=== PATIENT | female | born 1930 | race Caucasian/White ===

== ENCOUNTER 2018-06-25 06:15 | Day surgery (SDC) ==
--- NOTE | 2018-06-23 13:12 | EKG Report ---
Test Performed on : 06/23/2018 12:56:24 PM Test Reason : PAT Blood Pressure : / mmHG Vent. Rate : 102 BPM Atrial Rate : 102 BPM P-R Int : 134 ms QRS Dur : 082 ms QT Int : 350 ms P-R-T Axes : 036 -09 055 degrees QTc Int : 456 ms Sinus tachycardia. Nonspecific T wave abnormality Abnormal ECG When compared with ECG of 21-MAY-2018 13:57, (Unconfirmed) premature ventricular complexes. are no longer present Confirmed by Cam ASTORGA, Alban Ruiz ([id number]) on 06/25/2018 8:45:09 AM
[2018-06-23 13:26] LABS: HEMATOCRIT 31.6 % (37.0-47.0); HEMOGLOBIN 9.6 g/dL (12.0-16.0); MCH 29.3 PG (27-31); MCHC 30.4 g/dL (33-37); MCV 96.3 FL (81-99); MPV 11.9 FL (7.4-10.4); RBC 3.28 XMIL (4.2-5.4); RDW 27.6 % (11.5-14.5); WBC 3.74 X1000 (4.8-10.8)
[2018-06-23 14:30] LABS: AGAP 14; ALB/GLOB RATIO 0.4; ALBUMIN 2.1 g/dL (3.5-5.0); ALKALINE PHOSPHATASE 259 U/L (32-104); BUN 19 mg/dL (8-22); CALCIUM 8.2 mg/dL (8.8-10.2); CHLORIDE 96 mmol/L (98-107); COSMO 264; CREATININE 0.5 mg/dL (0.5-0.9); ESTIMATED GFR > 60; GLUCOSE 176 mg/dL (70-104); GOT 51 U/L (10-30); GPT 22 U/L (10-36); POTASSIUM 4.2 mmol/L (3.5-5.1); SODIUM 128 mmol/L (136-145); TCO2 18 mmol/L (25-35); TOTAL BILIRUBIN 2.65 mg/dL (0.20-1.00); TOTAL PROTEIN 7.7 g/dL (6.3-8.3)
[2018-06-25] MEDS ORDERED: PEPCID ONE (06:39)
[2018-06-25] MEDS ORDERED: LR 1,000 ML ONE ×2 (06:39→07:48)
[2018-06-25] MEDS ORDERED: SODIUM CHLORIDE 0.9% ONE (07:48)
[2018-06-25] MEDS ORDERED: SENSORCAINE-MPF 0.5%/EPI 1:200,000 ONE (07:48)
[2018-06-25] MEDS ORDERED: QUELICIN (DOSE) ONE (07:57)
[2018-06-25] MEDS ORDERED: XYLOCAINE-MPF 2% ONE (07:57)
[2018-06-25] MEDS ORDERED: FENTANYL ONE (08:19)
[2018-06-25] MEDS ORDERED: NEO-SYNEPHRINE ONE (08:23)
[2018-06-25] MEDS ORDERED: GLUCAGON ONE ×2 (08:49→08:56)
[2018-06-25] MEDS ORDERED: ZOFRAN ONE (08:55)
[2018-06-25] MEDS ORDERED: DECADRON ONE (08:55)
[2018-06-25] MEDS ORDERED: EPHEDRINE ONE (08:56)
--- NOTE | 2018-06-25 09:18 | Diag Imaging Result Doc PS360 ---
EXAM: OPERATIVE CHOLANGIOGRAM 06/25/2018 HISTORY: GALLBLADDER DX TECHNIQUE: Intraoperative cholangiogram three views, fluoroscopy time one minute 36 seconds, dose 47560 mGy. COMMENT: The intrahepatic ducts are not well demonstrated. The common bile duct appears to be somewhat compressed and its midportion. There is some contrast in what appears to be the gallbladder. There is no evidence of contrast reaching the duodenum. There may be a filling defect in the distal duct. IMPRESSION: The possibility of retained stones or other obstructing lesion in the distal common bile duct cannot be excluded. Electronically signed by Jose Beverly 06/25/2018 9:16 AM
--- NOTE | 2018-06-25 10:02 | Diag Imaging Result Doc PS360 ---
EXAM: CHEST-1 VIEW 06/25/2018 HISTORY: ro pulmonary edema TECHNIQUE: AP portable upright at 0952 COMMENT: There is some retrocardiac opacity in the left lower lobe. This was also presumably present on 05/21/2018. IMPRESSION: Atelectasis versus pneumonia left lower lobe. Electronically signed by Jose Beverly 06/25/2018 10:00 AM
[2018-06-25] MEDS: MORPHINE ONE ×2 (10:03→10:10)
[2018-06-25] MEDS ORDERED: LR 1,000 ML IV SCH (10:30)
[2018-06-25] MEDS ORDERED: TYLENOL ARTHRITIS PO PRN (10:49)
[2018-06-25] MEDS ORDERED: BISMATROL PO PRN (10:49)
[2018-06-25] MEDS ORDERED: MIRALAX PO PRN (10:49)
[2018-06-25] MEDS ORDERED: MILK OF MAGNESIA PO PRN (10:49)
[2018-06-25] MEDS ORDERED: ZOFRAN IV PRN (10:49)
--- NOTE | 2018-06-25 12:27 | OPERATIVE NOTE ---
PROCEDURE DATE: 06/25/2018 PROCEDURE PERFORMED: Laparoscopic cholecystectomy with operative cholangiogram. SURGEON: Andreas Thao MD. CHIEF OF INTERNAL MEDICINE: JOSÉ MIGUEL Childers. PREOPERATIVE DIAGNOSIS: Chronic calculous cholecystitis. POSTOPERATIVE DIAGNOSES: 1. Chronic calculous cholecystitis. 2. Choledocholithiasis. . FINDINGS: The cholangiogram revealed a normal size common duct. There was no free flow in the duodenum. There appeared to be a filling defect in the distal common bile duct. DESCRIPTION OF PROCEDURE: Satisfactory general endotracheal anesthesia was achieved, the abdomen is prepped and draped in a sterile fashion. We anesthetized the skin at the base of the umbilicus. We incised the skin, and carried our incision into the abdominal cavity. We placed our 11 trocar there with Optiview technique. We insufflated through this trocar. Under direct visualization, we were able to gain access in the left upper quadrant. We visualized the epigastrium, and introduced 11 trocar in the epigastrium. We then introduced a 5 trocar in the midclavicular line, and a 5 trocar near the anterior axillary line. The adhesions were taken down from the back of the abdominal wall to allow free access to the umbilical trocar into the abdominal cavity. We then placed the camera into the umbilical trocar. We then placed the patient in reverse Trendelenburg and turned her to the left. We grasped the fundus of the gallbladder. It was full of stones. We reflected it cephalad, began dissection of the triangle of Calot. We identified the cystic artery, clipped it proximally x2, distally x1, and divided it. We then identified the cystic duct, clipped it near the junction of the gallbladder. We incised the cystic duct, introduced a Irene catheter, and clipped. We shot the cholangiogram, and the findings above were noted. There was no free flow in the duodenum, and appeared to be a stone in the distal duct. We removed the Irene catheter and clipped the cystic duct on the opposite side of the cystic ductotomy x2, and then transected the cystic duct. Another branch of the cystic artery was clipped and divided. We then used the cautery spatula to dissect the gallbladder away from the liver. After complete separation of gallbladder from liver, we changed videolaparoscope to the mid epigastric trocar. We introduced a claw forceps. We grasped the infundibulum. We delivered the gallbladder to the umbilical trocar site. We enlarged the fascial incision enough to deliver the gallbladder out of the abdominal cavity. We replaced the trocar at the umbilicus, looked back, and irrigated and aspirated. Achieved satisfactory hemostasis in the bed of the gallbladder. We then used a Reji-Helen wound closure for the epigastric trocar site. We desufflated and removed our other trocars. We closed the fascia at the umbilicus under direct visualization with 2-0 Polysorb fascial stitches. We then closed the skin at each incision with 4- 0 Polysorb subcuticular stitches. Sterile OpSite's were applied. She tolerated it well, and was sent to the recovery room in satisfactory condition. cc: Andreas Thao MD MTDD
--- NOTE | 2018-06-25 14:47 | GASTROENTEROLOGY CONSULTATION ---
DATE: 06/25/2018 ATTENDING PHYSICIAN: Dr. Thao. PRIMARY CARE PHYSICIAN: Dr. Michael Simental. REASON FOR CONSULTATION: Common bile duct stone on intraoperative cholangiogram. HISTORY OF PRESENT ILLNESS: Ms. Martin is an 87-year-old female who was admitted electively for a laparoscopic cholecystectomy by Dr. Andreas Thao. She was having abdominal discomfort for a few months. She had abdominopelvic CT scan done on 06/02/2018 which showed evidence of mild splenomegaly, enlarged cardiophrenic lymph nodes and shoddy borderline, and mildly prominent periaortic lymph nodes, nonspecific, small enhancing nodule at the upper pole of the left kidney, large hiatal hernia, and trace nonspecific fluid layering in the pelvis. The gallbladder and liver were unremarkable on that study. Following that, she had a HIDA scan which showed nonvisualization of the gallbladder. The possibility acute cholecystitis cannot be excluded. This was on 06/11/2018. She was brought in now for elective cholecystectomy by Dr. Thao. Intraoperative cholangiogram showed a possibility of retained stones in the distal common bile duct. Gastroenterology was consulted for further management of possible ERCP. PAST MEDICAL HISTORY: B12 deficiency, hypertension, hyperlipidemia, chronic blood-loss anemia, breast mass, hiatal hernia, reflux disease. PAST SURGICAL HISTORY: Recent cholecystectomy per Dr. Thao during this admission. FAMILY HISTORY: Noncontributory. SOCIAL HISTORY: No history of tobacco or illicit drugs. She was a former smoker. ALLERGIES: Penicillin and adhesive tape. MEDICATIONS IN THE HOSPITAL: Include Pravachol, Celebrex, Estrace, hydrocodone/acetaminophen, Cozaar, lactated Ringer's, magnesium hydroxide, metoprolol, Prilosec 40 mg every day, Zofran twice daily, MiraLAX 17 g p.o. daily as needed, Tylenol 650 mg every 6 as needed, bismuth subsalicylate 15 mL p.o. as needed. DIET: She is on clear liquid diet. REVIEW OF SYSTEMS: Denies any fevers, rigors, chills, chest pain, or shortness of breath. Denies any nausea, vomiting, or vomiting blood. Does complain of soreness in the abdomen from recent surgery. She has not had a bowel movement today. She does have a history of arthritis. PHYSICAL EXAMINATION: Vital Signs: Temperature 98 degrees, pulse rate of 86, respiratory rate of 15, blood pressure 115/62, saturating 99% on nasal cannula. Body weight of 142 pounds, BMI of 29.7 kg/m2. General Appearance: Moderately built, moderately nourished, lying in bed, in no acute distress. HEENT: Pale conjunctiva. Icteric sclerae. Pupils equal, reactive to light. Neck: Supple. Abdomen: Discomfort in the pelvic region and right upper quadrant region. There was no rebound or guarding. Extremities: No cyanosis, clubbing. Neurologic: Alert awake, and answers simple questions. LABS: Hemoglobin and hematocrit are 9.6 and 31.6, white count of 3.74, platelet count of 103,000. Sodium of 128, potassium 4.2, chloride of 96, bicarb 20, anion gap of 14, BUN of 19, creatinine 0.5, glucose 136, calcium is 8.2. Total bilirubin is 2.65, AST 51, ALT 22, alkaline phosphatase was 259, total protein 7.2, albumin of 2.1. Intraoperative cholangiogram showed evidence of possibility of a filling defect in the distal duct with no evidence of contrast reaching the duodenum. Chest x-ray done which showed atelectasis versus pneumonia in the left lower lobe. IMPRESSION AND PLAN: 1. Status post cholecystectomy today. 2. Choledocholithiasis. 3. Anemia. 4. Hiatal hernia. RECOMMENDATIONS: 1. We will make her NPO past midnight. We will schedule with ERCP tomorrow with Dr. Brand. The risks, benefits, indications, and alternatives were discussed with the patient. All questions were answered. I also spoke to the patient's nurse. The patient will continue PPIs once daily for reflux disease. 2. The patient has chronic anemia. She will continue to be monitored closely and transfused as needed. She will continue on MiraLAX as needed, bowel regimen. 3. Further recommendations follow pending the hospital course. The above plans were discussed with the patient. All questions were answered. Please call us with any further questions. Thank you for allowing us to participate in the care of the patient. Please call us with any further questions. cc: MD Andreas Garg MD Timothy P. Weirich, MD MTDD
[2018-06-25] MEDS: NORCO-7.5 PO PRN ×2 (19:35→22:46)
[2018-06-25] MEDS: PRAVACHOL PO SCH (22:45)
[2018-06-25] MEDS: PERIDEX MT SCH (22:47)
[2018-06-25] MEDS: PATIENT'S OWN MED PO SCH (22:47)
[2018-06-26] MEDS: PRILOSEC PO SCH (06:50)
[2018-06-26] MEDS ORDERED: DIPRIVAN 1% ONE ×2 (09:32)
[2018-06-26] MEDS ORDERED: XYLOCAINE-MPF 1% 5 ML ONE (10:35)
[2018-06-26] MEDS ORDERED: XYLOCAINE-MPF 2% ONE (11:16)
--- NOTE | 2018-06-26 11:42 | Diag Imaging Result Doc PS360 ---
EXAM: ERCP-BILIARY AND PANCREATIC 06/26/2018 HISTORY: CBD stones TECHNIQUE: Three images, 46.8 mGy, two minutes 50 seconds fluoroscopy time. COMMENT: Contrast was injected into the common bile duct which is without evidence of filling defects or obstruction. Contrast is seen in the duodenum. A stent was placed. IMPRESSION: Biliary stent placement. No evidence retained stones or obstruction. Electronically signed by Jose Beverly 06/26/2018 11:40 AM
[2018-06-26] MEDS: ESTRACE PO SCH (12:48)
[2018-06-26] MEDS: PERIDEX MT SCH ×2 (12:48→23:36)
[2018-06-26] MEDS: LOPRESSOR PO SCH (12:48)
[2018-06-26] MEDS: CELEBREX PO SCH (12:48)
[2018-06-26] MEDS: PATIENT'S OWN MED PO SCH (12:49)
[2018-06-26] MEDS: COZAAR PO SCH (12:49)
--- NOTE | 2018-06-26 13:58 | Diag Imaging Result Doc PS360 ---
CHEST-1 VIEW - 06/26/2018 INDICATION: possible sepsis COMPARISON: 06/25/2018 FINDINGS: Lung volumes are lower. There is linear atelectasis in the lung bases. There is probably also some indeterminate infiltrate in the lung bases. Heart size appears top normal. IMPRESSION: Lower lung volumes. Worsening atelectasis and possible pneumonia in the lung bases. Electronically signed by Jean Marie Bentley 06/26/2018 1:55 PM
[2018-06-26 15:44] LABS: BASO# 0.01 X1000 (0.0-0.2); BASO% 0.2 % (0.0-0.8); HEMATOCRIT 26.8 % (37.0-47.0); HEMOGLOBIN 8.4 g/dL (12.0-16.0); IMM GRAN# 0.09 X1000 (0.0-0.04); LYMPH# 0.23 X1000 (1.2-3.4); MCH 29.8 PG (27-31); MCHC 31.3 g/dL (33-37); MONO# 0.46 X1000 (0.11-0.59); MPV 11.8 FL (7.4-10.4); NEUT# 3.81 X1000 (1.4-6.5); NEUT% 82.8 % (42.2-75.2); PLT 108 X1000 (130-400); RBC 2.82 XMIL (4.2-5.4); RDW 25.9 % (11.5-14.5)
[2018-06-26 15:46] LABS: INR 1.33; PROTIME 17.5 Seconds (11.0-16.0)
[2018-06-26 15:47] LABS: PTT 33.2 Seconds (22.3-41.8)
[2018-06-26 16:03] LABS: AGAP 11; ALB/GLOB RATIO 0.4; ALKALINE PHOSPHATASE 183 U/L (32-104); BUN 22 mg/dL (8-22); CALCIUM 8.1 mg/dL (8.8-10.2); CHLORIDE 101 mmol/L (98-107); CK PROFILE 10 U/L (24-173); COSMO 278; CREATININE 0.6 mg/dL (0.5-0.9); ESTIMATED GFR > 60; GLUCOSE 173 mg/dL (70-104); GOT 38 U/L (10-30); GPT 27 U/L (10-36); SODIUM 135 mmol/L (136-145); TCO2 23 mmol/L (25-35); TOTAL BILIRUBIN 2.24 mg/dL (0.20-1.00); TOTAL PROTEIN 6.8 g/dL (6.3-8.3)
[2018-06-26 16:24] LABS: URINE SOURCE CATH
[2018-06-26 16:25] LABS: ANISOCYTOSIS 2+; BANDS 2 % (0-1); EOS 1 % (1-10); HYPOCHROM 2+; LYMPHS 6 % (21-51); MONO 7 % (1-9); SEGS 84 % (42-75)
[2018-06-26 16:30] LABS: BILIRUBIN URINE SMALL (NEGATIVE); BLOOD URINE NEGATIVE (NEGATIVE); COLOR YELLOW; GLUCOSE URINE 70 mg/dL (NEGATIVE); KETONE URINE NEGATIVE (NEGATIVE); LEUKOCYTES URINE NEGATIVE (NEGATIVE); NITRITE URINE NEGATIVE (NEGATIVE); PROTEIN URINE 100 mg/dL (NEGATIVE); SP GRAVITY URINE 1.025; TURBIDITY URINE HAZY (CLEAR); UROBILINOGEN URINE 12 mg/dL (NORMAL)
[2018-06-26 16:32] LABS: UR EPITHELIAL CELLS <10 /HPF (<10); URINE BACTERIA NEGATIVE /HPF; URINE WBC <10 /HPF (<10)
--- NOTE | 2018-06-26 17:44 | DISCHARGE SUMMARY ---
ADMISSION DATE: 06/25/2018 DISCHARGE DATE: 06/26/2018 TIME: 5:30 in afternoon. PRIMARY DISCHARGE DIAGNOSIS: Chronic calculous cholecystitis with choledocholithiasis. OTHER DIAGNOSES: Include 1. Hypertension. 2. Hyperlipidemia. 3. Gastroesophageal reflux disease. PRIMARY PROCEDURES: 1. Laparoscopic cholecystectomy with operative cholangiogram. 2. An ERCP with stent placement Dr. Brand. HOSPITAL COURSE: This 87-year-old who had previous infection sepsis from cholecystitis. She has numerous stones in her gallbladder so she was admitted for a cholecystectomy. She underwent the procedure on 06/25/2018 uneventfully. She did have a stone in common duct stone so Dr. Brand was consulted and then performed an ERCP on 06/26/2018. A stent was placed. No filling defects were seen after the stent was placed. She tolerated it well. Postoperatively this afternoon she is afebrile, heart rate 79, blood pressure 122/58. We will plan to return her back to the [facility] in [place] on the morning of 06/27. Dr. De La Cruz will be covering in my absence. She will resume her usual medications. A prescription for some pain medicine will be written. She will follow up with me in 2 weeks, Dr. Brand in 3 weeks. cc: Andreas Thao MD
--- NOTE | 2018-06-26 17:52 | OPERATIVE NOTE ---
PROCEDURE DATE: PROCEDURES: 1. Endoscopic retrograde cholangiopancreatography. 2. Endoscopic sphincterotomy. 3. Basket sweep. 4. Endoscopic biliary stent placement. PREOPERATIVE DIAGNOSIS: Common bile duct stone. POSTOPERATIVE DIAGNOSIS: Debris in bile duct. No stone, per se. Status post sphincterotomy and stent placement. DESCRIPTION OF PROCEDURE: After informed consent and adequate intravenous sedation, the scope was introduced in the stomach and duodenum. The patient's ampulla shows 2 separate entries for pancreatic and bile duct. The bile duct was selectively cannulated. There was a hang-up of contrast within the intraduodenal portion. I did not see a specific stone. At this point wide sphincterotomy was done and basket was used with sweep and flush. All I saw was some minor sludge but no stones. At this point, after thorough lavage, cholangiogram did not reveal anything. A 10- Eritrean, 5 cm stent was deployed. We will keep it for a few weeks. I will see her in the office in 3 weeks, and remove this selectively. I talked to the family about it. cc: MD Andreas Buenrostro MD
[2018-06-26] MEDS: NORCO-7.5 PO PRN ×2 (19:38→23:35)
[2018-06-26] MEDS: PRAVACHOL PO SCH (23:35)
[2018-06-27] MEDS: PATIENT'S OWN MED PO SCH ×2 (03:00→08:44)
[2018-06-27] MEDS: PRILOSEC PO SCH (08:40)
[2018-06-27] MEDS: ESTRACE PO SCH (08:40)
[2018-06-27] MEDS: CELEBREX PO SCH (08:40)
[2018-06-27] MEDS: LOPRESSOR PO SCH (08:40)
[2018-06-27] MEDS: PERIDEX MT SCH (08:40)
[2018-06-27] MEDS: COZAAR PO SCH (08:40)
[2018-06-27 11:48] VITALS: BP 136/59
== END 2018-06-27 12:26 | disposition home or self-care (01) ==
LOC: PAT 06:15 → 4N 06:15 → OPS 06:15
PROVIDERS: ATTEND Surgery
PROC: EN.ERCP (2018-06-26 10:50)
CPT/HCPCS: 71010; 71045; 74300; 74330; 80053; 81001; 82550; 83605; 84484; 85025; 85027; 85610; 85730; 87040; 88304; 88313; 93005; 93010; 94761; 94799; A9270; J0330; J1100; J1610; J2270; J2370; J2405; J3010; J7120; Q9966; Q9967

== ENCOUNTER 2018-07-15 17:16 | Inpatient (IN) ==
--- NOTE | 2018-07-15 20:52 | PROVIDER DOCUMENTATION ---
HPI-General Adult - General Chief Complaint: Altered Mental Status Stated Complaint: AMS Time Seen by Provider: 07/15/18 20:40 Source: patient Allergies/Adverse Reactions: Patient Allergies Allergy/AdvReac Type Severity Reaction Status Date / Time Penicillins Allergy Unknown Verified 06/25/18 06:44 adhesive tape AdvReac REDNESS Verified 06/25/18 06:44 Home Medications: Home Medication List Medication Instructions Recorded Confirmed Last Taken Type Estradiol 0.5 mg PO DAILY 03/25/14 07/07/18 06/24/18 History Pravastatin Sodium [Pravachol] 20 mg PO QHS 03/25/14 07/07/18 06/24/18 21:00 History Omeprazole [Prilosec] 40 mg PO DAILY #30 capsule 03/26/14 07/07/18 06/24/18 Rx Acetaminophen E.r. [Tylenol 650 mg PO PRN PRN 09/17/17 07/07/18 05/21/18 History Arthritis] Polyethylene Glycol 3350 [Miralax] 17 gm PO PRN PRN 09/17/17 07/07/18 3 Days Ago History ~05/18/18 Losartan [Cozaar] 50 mg PO DAILY 05/05/18 07/07/18 06/24/18 History Celecoxib [Celebrex] 200 mg PO DAILY cap 05/27/18 07/07/18 06/24/18 Rx B12/Levomefolate Calcium/B-6 1 ea PO DAILY 06/23/18 07/07/18 06/24/18 History [Folbic Rf Tablet] Bismuth Subsalicylate [Bismatrol] 15 ml PO PRN PRN 06/23/18 07/07/18 Unknown History Iron Carbonyl/Vit C/Vit B12/FA 1 ea PO DAILY 06/23/18 07/07/18 06/24/18 History [Icar-C Plus] Lactobac No.30/Bifidobact No.4 1 ea PO DAILY 06/23/18 07/07/18 06/24/18 History [Ultimate Aggie Probiotic Dr Cp] Magnesium Hydroxide [Milk of 30 ml PO PRN PRN 06/23/18 07/07/18 Unknown History Magnesia] Metoprolol [Lopressor] 25 mg PO DAILY 06/23/18 07/07/18 06/25/18 05:00 History Protein Supplement [Promod] 30 ml PO BID 06/23/18 07/07/18 06/24/18 History Tramadol [Ultram] 50 mg PO Q6H PRN PRN #14 tab 06/26/18 07/07/18 Unknown Rx Alprazolam [Xanax] 0.25 mg PO BID PRN 07/07/18 07/07/18 Unknown History Azithromycin 250 mg PO DAILY 07/07/18 07/07/18 Unknown History Furosemide [Lasix] 40 mg PO DAILY 07/07/18 07/07/18 Unknown History Levofloxacin [Levaquin] 500 mg PO DAILY 07/07/18 07/07/18 Unknown History Potassium Chloride 20 meq PO DAILY 07/07/18 07/07/18 Unknown History - History of Present Illness -Gen Adult Nature of Presenting Problems: 87 YOF PRESENTS WITH C/O JAUNDICE AND GENERAL DECLINE. SHE WAS SEEN LAST NIGHT FOR ANKLE FRACTURE AND FAMILY HAS BROUGHT HER BACK DUE TO THE ABOVE. DISCUSSION WITH DAUGHTER AND REVIEW OF ADVANCED DIRECTIVE SHOW PATIENT IS DNR Onset/Duration: reports: unsure (FMAILY LIVES OUT OF TOWN, PATIENT IS IN REHAB FACILITY AFTER CHOLECYSTECTOMY AND BILIARY STENTING) Timing: reports: still present Context/Activities at Onset: reports: none Modifying Factors: improves with: nothing Associated Symptoms: reports: denies symptoms Similar Symptoms Previously?: No Recently seen or treated by another doctor?: No Review of Systems - Adult - REVIEW OF SYSTEMS - ADULT ROS:: unobtainable per condition ([facility] IS UNABLE TO ANSWER QUESTIONS, DAUGHTER AT BEDSIDE ABLE TO PROVIDE LIMITED INFO.) Constitutional: reports: other (JAUNDICE, GENERAL DECLINE) Past History - Adult - PAST MEDICAL HISTORY-ADULT Review of Records: reports: Nursing Assessment Review, Social history reviewed & non-contributory. Major Childhood Illnesses: reports: denies history Cardiovascular: reports: HTN Respiratory: reports: asthma Gastrointestinal: reports: GERD Obstetrical/Gynecological: reports: denies history Genitourinary: reports: denies history Musculoskeletal: reports: denies history Neurological: reports: denies history Psychiatric: reports: anxiety Endocrine/Immune: reports: denies history Other Conditions: reports: denies history - PRIOR SURGERIES/PROCEDURES Surgical/Procedure History: reports: appendectomy, hysterectomy - IMMUNIZATION STATUS Childhood Immunizations: See Nurse Assessment Flu Vaccine: See Nurse Assessment - FAMILY HISTORY Family History: reviewed, not pertinent Physical Exam-General - PHYSICAL EXAM-ADULT Initial Vital Signs Reviewed: Yes - CONSTITUTIONAL General Appearance: appears well, no apparent distress, lethargic - EYES Eyes: PERRL/EOMI, pink conjunctivae - HEAD, EARS, NOSE, MOUTH & THROAT HENMT: normocephalic/atraumatic - NECK Neck: non-tender, full range of motion - RESPIRATORY Respiratory: chest non-tender, lungs clear, normal breath sounds, no pleuratic chest pain, no respiratory distress, no accessory muscle use - CARDIOVASCULAR Cardiovascular: normal peripheral pulses, regular rate, rhythm. negative: no edema - GASTROINTESTINAL (ABDOMEN) Abdominal Exam: normal bowel sounds, non tender, soft - LYMPHATIC Lymphatic: no adenopathy - MUSCULOSKELETAL Back Exam: normal inspection Extremity: non-tender - SKIN Integumentary: jaundice - NEUROLOGIC Neurologic: grossly normal - PSYCHIATRIC Psych/Mental Status: normal mood/affect, oriented x 3 Progress - PLAN OF CARE/RESULTS Progress/Plan/Lab Results: Vital Signs - 8 hr 07/15/18 17:35 07/15/18 20:25 Temperature 98.1 F 98.0 F Pulse Rate 80 99 H Respiratory Rate 20 24 Blood Pressure 120/62 90/36 O2 Sat by Pulse Oximetry 95 99 Orders Category Date Time Status Finger Stick Blood Sugar (ED) DIRECTED Care 07/15/18 20:43 Active Saline Loc NOW Care 07/15/18 20:[address] HEAD W/O CONTRAST [CT] Stat Exams 07/15/18 20:42 Ordered AMMONIA [CHEM] Stat Lab 07/15/18 20:43 Uncollected CBC WITH ELECTRONIC DIFF [HEME] Stat Lab 07/15/18 20:43 Uncollected COMPREHENSIVE METABOLIC PANEL [CHEM] Stat Lab 07/15/18 20:43 Uncollected HEPATIC FUNCTION [CHEM] Stat Lab 07/15/18 20:43 Uncollected PROTIME WITH INR [COAG] Stat Lab 07/15/18 20:43 Uncollected PTT [COAG] Stat Lab 07/15/18 20:43 Uncollected Result Diagrams: 07/15/18 23:10 07/15/18 23:10 - CT/MRI 1 CT Study: Abdomen, Pelvis Impression: Abnormal (1. APPROPRIATE BILE DUCT STENT POSITION WITH NO BILE DUCT DILATION 2.PROBABLE METASTATIC ADENOPATHY IN THE RETROPERITONEUM, UPPER ABDOMEN, BILATERAL MAMMARY CHAINS. 3. INCREASED SMALL BILATERAL PLEURAL EFFUSIONS.) - CONSULTS/PCP/HOSPITALIST Notification #1 *Consult/PCP/Hospitalist*: DR BHATT. TO ER FOR ADMIT Time Discussed: Departure - Departure Date of Disposition Decision: 07/16/18 Time of Disposition Decision: DIAGNOSIS: Jaundice, Altered mental state Disposition: ADMITTED INPATIENT 09 Certified Medical Emergency: Emergent Condition: Good Referrals and Follow-Ups: Alex Rizzo [Primary Care Provider] - - Critical Care Note This patient required my direct & personal management of CC.: No Attestation - Physician/ RODOLFO Attestation Patient care was provided by Advanced Practice Provider:: Yes Advanced Practice Provider:: Deborah Thao Advanced Practice Provider documentation review:: The Mid-level provider documentation, treatment plan and medical decision making was reviewed by the physician who agrees with all treatment and medical decision making by the MLP. The physician spent face to face time with patient:: No Advanced Practice Provider documentation review:: Supervising physician onsite and consulted in the evaluation and care of this patient. The physician did not have a face to face encounter with the patient.
[2018-07-15 23:23] LABS: BASO# 0.03 X1000 (0.0-0.2); BASO% 0.4 % (0.0-0.8); HEMATOCRIT 28.4 % (37.0-47.0); HEMOGLOBIN 9.1 g/dL (12.0-16.0); IMM GRAN# 0.42 X1000 (0.0-0.04); IMM GRAN% 5.4 % (0.0-0.5); LYMPH# 0.45 X1000 (1.2-3.4); LYMPH% 5.8 % (20.5-51.1); MCH 29.4 PG (27-31); MCV 91.9 FL (81-99); MONO# 0.71 X1000 (0.11-0.59); MONO% 9.1 % (1.7-9.3); NEUT# 6.19 X1000 (1.4-6.5); NEUT% 79.3 % (42.2-75.2); PLT 46 X1000 (130-400); RBC 3.09 XMIL (4.2-5.4); RDW 21.8 % (11.5-14.5)
[2018-07-15 23:31] LABS: INR 1.17; PROTIME 15.8 Seconds (11.0-16.0)
[2018-07-15 23:37] LABS: AGAP 7; ALB/GLOB RATIO 0.4; ALBUMIN 1.7 g/dL (3.5-5.0); ALKALINE PHOSPHATASE 358 U/L (32-104); BUN 33 mg/dL (8-22); CALCIUM 8.2 mg/dL (8.8-10.2); CHLORIDE 102 mmol/L (98-107); COSMO 279; CREATININE 0.8 mg/dL (0.5-0.9); ESTIMATED GFR > 60; GLUCOSE 99 mg/dL (70-104); GOT 37 U/L (10-30); GPT 35 U/L (10-36); POTASSIUM 4.1 mmol/L (3.5-5.1); SODIUM 136 mmol/L (136-145); TCO2 27 mmol/L (25-35); TOTAL BILIRUBIN 4.85 mg/dL (0.20-1.00)
[2018-07-15 23:38] LABS: PTT < 20.0 Seconds (22.3-41.8)
[2018-07-16] MEDS ORDERED: NS 1,000 ML IV ONE ×2 (00:28→15:32)
[2018-07-16 00:31] LABS: BLOOD TYPE ARTERIAL; SAMPLE BLOOD
[2018-07-16 00:32] LABS: ALLEN TEST YES; BE 4.6 mmoll (-3.0-3.0); HCO3-(ACT) 28.5 mmoll (20.0-26.0); METHB 1.1 % (0.0-1.5); MODALITY CANNULA; O2(CT) 12.2 mL/dL (15.0-23.0); O2HB 93.4 % (95.0-99.0); PCO2(98.6) 43 mmHg (35-45); PO2(98.6) 68 mmHg (60-100); SAO2 96.9 % (95.0-100.0); THB 9.2 g/dL (11.5-17.4); pH(98.6) 7.44 (7.35-7.45)
[2018-07-16 05:28] LABS: URINE SOURCE CATH
[2018-07-16 05:35] LABS: BILIRUBIN URINE SMALL (NEGATIVE); BLOOD URINE NEGATIVE (NEGATIVE); COLOR YELLOW; GLUCOSE URINE NEGATIVE (NEGATIVE); KETONE URINE NEGATIVE (NEGATIVE); LEUKOCYTES URINE NEGATIVE (NEGATIVE); NITRITE URINE NEGATIVE (NEGATIVE); PH URINE 5.5; PROTEIN URINE TRACE mg/dL (NEGATIVE); SP GRAVITY URINE 1.006; TURBIDITY URINE HAZY (CLEAR); UROBILINOGEN URINE 2 mg/dL (NORMAL)
[2018-07-16 05:36] LABS: UR EPITHELIAL CELLS <10 /HPF (<10); URINE BACTERIA NEGATIVE /HPF; URINE RBC <10 /HPF (<10); URINE WBC <10 /HPF (<10)
--- NOTE | 2018-07-16 07:22 | EKG Report ---
Test Performed on : 07/15/2018 8:59:22 PM Test Reason : ED. NO EKG ORDER FOR MUSE Blood Pressure : / mmHG Vent. Rate : 091 BPM Atrial Rate : 091 BPM P-R Int : 128 ms QRS Dur : 086 ms QT Int : 354 ms P-R-T Axes : 052 -13 039 degrees QTc Int : 435 ms Normal sinus rhythm. Minimal voltage criteria for LVH, may be normal variant Borderline ECG When compared with ECG of 23-JUN-2018 12:56, No significant change was found Unconfirmed Result
--- NOTE | 2018-07-16 07:26 | Diag Imaging Result Doc PS360 ---
EXAM: CT ABDOMEN/PELVIS W/O CONTRAST 07/15/2018 HISTORY: RECENT STENT PLACEMENT NOW JAUNDICE TECHNIQUE: This exam was performed using automated exposure control, adjustment of mA or kV according to patient size, and/or use of iterative reconstruction technique. COMMENT: There are bilateral pleural effusions which have increased slightly in size since the previous study of 06/02/2018. There is worsened opacification of the left lower lobe with air bronchograms as well as atelectasis or pneumonia in the posterior right lower lobe. There is a slightly irregularly marginated soft tissue mass adjacent to the pericardium anteriorly in the midline on image 26 which measures 2.8 x 1.7 cm in the axial plane. Previously this measured 17 x 26 mm. There are bilateral internal mammary node seen on image five. This was only partially imaged at the time the previous examination. There are calcified granulomata throughout the enlarged spleen. The spleen measures in excess of 14.6 cm. This is larger than on the previous study at which time it measured a maximum of 13.8 cm. There is pneumobilia. There is a common bile duct stent. There has been cholecystectomy since the previous examination. There is a small amount of ascites. There is no evidence of nephrolithiasis or hydronephrosis. The pancreas is grossly normal in the absence of contrast. There is some stool and gas throughout the colon without evidence of dilatation. The small bowel is not distended. The stomach is not distended. There is considerable retroperitoneal adenopathy below the level the renal vessels particularly in the aortocaval and left para-aortic regions. This was also the case at the time the previous study. There is subcutaneous edema which is slightly worse than on the previous study particularly in the left flank. There is bilateral external iliac adenopathy similar in appearance to the previous examination. There are large left inguinal nodes one of which measures in excess of 2.2 cm. This is slightly worse than on the previous study. The urinary bladder is slightly distended. There is solid stool in the rectum. There are old fractures in both superior and inferior pubic rami. There are degenerative disc changes in the lumbar spine as well as facet arthropathy bilaterally at L4-5 and L5-S1. There is some scoliosis with convexity to the left. IMPRESSION: Worsened splenomegaly. The common bile duct stent appears to be in place. Worsened pleural effusions, atelectasis versus pneumonia in the lower lobes, and mild anasarca. Cardiophrenic, internal mammary, retroperitoneal and inguinal adenopathy. Minimal ascites. Electronically signed by Jose Beverly 07/16/2018 7:24 AM
[2018-07-16] MEDS ORDERED: ZOFRAN IV PRN (07:47)
--- NOTE | 2018-07-16 08:00 | Diag Imaging Result Doc PS360 ---
US ABDOMEN-COMPLETE - 07/16/2018 INDICATION: Transaminitis COMPARISON: CT from 07/15/2018 FINDINGS: The gallbladder is surgically absent. There is apparently a stent in the common bile duct. The common bile duct measures 4.4 mm. No biliary dilation in the liver. No liver masses. Both kidneys are grossly normal. The spleen is somewhat enlarged. The spleen measures 13.2 x 5.7 cm. Increase is obscured. Main portal vein is patent. Aorta and IVC are obscured. IMPRESSION: Mild splenomegaly. Electronically signed by Jean Marie Bentley 07/16/2018 7:58 AM
--- NOTE | 2018-07-16 08:17 | Diag Imaging Result Doc PS360 ---
EXAM: CHEST-PORTABLE 07/16/2018 HISTORY: Recent Dx of PNA,Encephalopathy. TECHNIQUE: Portable chest at 0809. 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 There is retrocardiac opacity in the left lower lobe which appears worse than on 06/26/2018. The inspiration is less optimal. IMPRESSION: Atelectasis and/or pneumonia left lower lobe. Electronically signed by Jose Beverly 07/16/2018 8:15 AM
[2018-07-16] MEDS: LEVAQUIN 750 MG/D5W 750 MG/150 ML IVPB IV SCH (08:25)
[2018-07-16 08:27] LABS: HEMATOCRIT 26.7 % (37.0-47.0); HEMOGLOBIN 8.6 g/dL (12.0-16.0); LYMPH% 5.6 % (20.5-51.1); MCH 29.5 PG (27-31); MCHC 32.2 g/dL (33-37); MCV 91.4 FL (81-99); NEUT% 78.2 % (42.2-75.2); PLT 52 X1000 (130-400); RBC 2.92 XMIL (4.2-5.4); RDW 21.7 % (11.5-14.5); WBC 7.15 X1000 (4.8-10.8)
[2018-07-16 08:28] LABS: BASO# 0.03 X1000 (0.0-0.2); BASO% 0.4 % (0.0-0.8); IMM GRAN# 0.42 X1000 (0.0-0.04); IMM GRAN% 5.9 % (0.0-0.5); MONO# 0.71 X1000 (0.11-0.59); MONO% 9.9 % (1.7-9.3); NEUT# 5.59 X1000 (1.4-6.5)
[2018-07-16 08:52] LABS: AGAP 9; ALB/GLOB RATIO 0.5; ALBUMIN 1.9 g/dL (3.5-5.0); ALKALINE PHOSPHATASE 331 U/L (32-104); BUN 33 mg/dL (8-22); CALCIUM 7.8 mg/dL (8.8-10.2); CHLORIDE 102 mmol/L (98-107); COSMO 280; CREATININE 0.8 mg/dL (0.5-0.9); ESTIMATED GFR > 60; GLUCOSE 75 mg/dL (70-104); GOT 36 U/L (10-30); GPT 32 U/L (10-36); POTASSIUM 4.2 mmol/L (3.5-5.1); SODIUM 137 mmol/L (136-145); TCO2 26 mmol/L (25-35); TOTAL BILIRUBIN 4.98 mg/dL (0.20-1.00); TOTAL PROTEIN 5.6 g/dL (6.3-8.3)
[2018-07-16 09:12] LABS: BANDS 12 % (0-1); LYMPHS 10 % (21-51); SEGS 78 % (42-75)
[2018-07-16] MEDS: MORPHINE IV PRN ×3 (09:28→21:10)
[2018-07-16] MEDS ORDERED: MIRALAX PO PRN (15:27)
--- NOTE | 2018-07-16 16:12 | HISTORY AND PHYSICAL ---
PRIMARY CARE PROVIDER: Dr. Simental CHIEF COMPLAINT: Altered mental status. HISTORY OF PRESENT ILLNESS: Ms. Martin is an 87-year-old female who was just discharged recently from our facility on 06/26/2018. She was here and was discharged after undergoing a laparoscopic cholecystectomy with operative cholangiogram, and an ERCP with stent placement by Dr. Brand. The patient was discharged [*]for what I think is rehab though yesterday on 07/14 she did come to the ER after having right ankle pain after a fall. Reportedly, the patient was being transferred from a wheelchair to a bed, and did begin to fall though it was reported that staff one on each side was able to lower her to the ground though somehow in the process her ankle may have been injured. She did report left ankle pain. She was evaluated in the ER, and was noted to have a possible left fibula fracture. She did have a splint placed, and was referred to follow up with Dr. Velez. After returning back to the assisted, her daughter states that her mentation did decline. The patient was noted to be altered and somewhat lethargic, and did have jaundice seen of the skin noted. I did send her back to the ER for evaluation. Upon examination in the ER, the patient is very drowsy but is arousable with verbal stimuli. She does respond to name, and is alert and oriented to name. She reports that her ear was hurting, and that she did have some generalized abdominal tenderness. She had obvious jaundice seen at the skin noted. Laboratory results did reveal some anemia though does appear to be stable. She does have thrombocytopenia with a platelet count of 46,000. Chemistry did reveal a transaminitis with a total bilirubin of 4.85. This is double what it was upon her discharge in the beginning of June. Her fingerstick blood sugar was 99. We did obtain arterial blood gases to rule out possible hypercapnia. Her CO2 was negative. Blood cultures were pretty unremarkable. She had O2 saturation of 96.9%. The patient did have a CT of the head on the when she came into the ER after her fall, and this was negative though her daughter at this time initially refused for her to have a CT. She has since had a CT abdomen and pelvis which did show some concerning findings for possible metastatic disease. Though her bile duct stent position was good with no visible bile duct dilation. There were some pleural effusions with possible atelectasis versus pneumonia in a lower lobe. She did have some mild anasarca noted and mild ascites noted. The patient is edematous. She has pitting edema noted to bilateral arms and to bilateral lower extremities from feet up to her thighs. She did receive 1 L of fluids in the ER. Urinalysis was placed which did show some protein and bilirubin on this was negative for any signs of infection. Her daughter was present at bedside. She did report that she has noticed a decline in the patient's mentation over the last few days. She has had a fall as previously mentioned though she has not noted her to be complaining of any anything. The patient's daughter states that over the past couple of months, the patient has had a markedly decline in her condition. REVIEW OF SYSTEMS: Unfortunately, at this time a complete Review of Systems was unable to be performed due to the patient's current condition and mentation. We did speak with the patient's daughter, and I do feel like if we recommend that a CT of the head would be recommended that she will allow this to be done though as previously mentioned at this time she did refuse this study in the ER. Though unfortunately the patient did receive contrast with her abdomen and pelvis CT, we will not be able to give her IV contrast again. She does have a history of breast cancer and does have possible metastatic disease noted on her CT of the abdomen and pelvis. We want to obtain a chest CT though we would like to do this with contrast. We are unable to perform a head CT at this time though she has received contrast as well. We will allow some time to pass and re- evaluate her mental status, and continue to follow. PAST MEDICAL HISTORY: 1. Vitamin B12 deficiency. 2. Hypertension. 3. Hyperlipidemia. 4. Chronic blood-loss anemia. 5. History of breast cancer. 6. Hiatal hernia. 7. Reflux disease. 8. Osteopenia. PAST SURGICAL HISTORY: 1. Tonsillectomy. 2. Appendectomy. 3. Total abdominal hysterectomy. 4. Bilateral cataract replacement with intra-ocular lens. 5. Basal cell carcinoma of the right breast for which she did state I believe Dr. Thao did perform the surgery for this. 6. Recent laparoscopic cholecystectomy with operative cholangiogram, and an ERCP with stent placement by Dr. Brand. SOCIAL HISTORY: The patient is a resident at [facility] at this time. Her 2 daughters alternate in helping to take care of her. There is no known alcohol or illicit drug use. She is a former smoker. I believe the patient does ambulate with assistance given that she reportedly fell when being transferred from a wheelchair to the bed. FAMILY HISTORY: Significant for hypertension, heart disease, diabetes, and lung cancer. ALLERGIES: Patient has allergies to penicillin and adhesive tape. MEDICATIONS: 1. Tylenol Arthritis 650 mg p.o. p.r.n. for pain. 2. Xanax 0.25 mg p.o. b.i.d. 3. Azithromycin 250 mg p.o. daily. 4. [*] 15 mL p.o. p.r.n. 5. Celebrex 200 mg p.o. daily. 6. Estradiol 0.5 mg p.o. daily. 7. Lasix 40 mg p.o. daily. 8. I-Car C Plus 1 p.o. daily. 9. Ultima Aggie probiotic release capsule 1 p.o. daily. 10. Levaquin 5 mg p.o. daily. 11. Cozaar 50 mg p.o. daily. 12. Milk of Magnesia 30 mL p.o. daily p.r.n. 13. Lopressor 25 mg p.o. daily. 14. Prilosec 40 mg p.o. daily. 15. MiraLAX 17 grams p.o. p.r.n. or constipation. 16. Potassium chloride. 17. Pravastatin sodium 20 mg p.o. at bedtime. 18. ProMod 30 mL p.o. b.i.d. 19. Ultram 50 mg p.o. q.6 h P.r.n. or pain. DIAGNOSTIC DATA/LABORATORY RESULTS: 1. White blood cell count is 7800. Hemoglobin 9.1, hematocrit 28.4, and platelet count of 46,000. PT 15.8, INR 1.17, PTT less than 20. Sodium 136, potassium 4.1, chloride 102, serum bicarb 27, BUN 33, creatinine 0.8. GRF is greater than 6, glucose 99, calcium 8.2, total bilirubin 4.85, direct bilirubin is 4, AST of 37, ALT 35, and alkaline phosphatase is 258. Plasma lactate 1.3. Arterial blood gases were obtained on nasal cannula at 2 L. A pH of 7.44, pC02 of 43, p02 of 68. Base excess 4.6. O2 saturation is 96.9. Urinalysis was obtained via catheter and was positive for trace protein and small amount of urine. Other than that was negative for any signs of infection. CT of abdomen and pelvis did show worsened splenomegaly. The common bile duct stent appears to be in place. There were worsening pleural effusion with atelectasis versus pneumonia in lower lobe and mild anasarca. There is cardiophrenic, internal mammary, and retroperitoneal as well as inguinal adenopathy noted. There is minimal ascites as well. This is per Radiology. 2. Chest x-ray showed atelectasis and/or pneumonia in the left lower lobe. 3. Abdominal ultrasound showed mild splenomegaly. PHYSICAL EXAMINATION: VITAL SIGNS: Heart rate 93, respirations 21, blood pressure 108/59 with a MAP of 85, ultrafiltration is 92% on nasal cannula at 2L. GENERAL: Ms. Martin is an 87-year-old female. She was resting in the ER stretcher. She was drowsy upon examination, though was arousable to verbal stimuli. She was oriented to her name. She was able to answer some simple questions, and follow some simple commands. HEENT: Head is atraumatic, normocephalic. Pupils are equal, round and reactive to light with 3 mm bilaterally and brisk. Subconjunctival were pink. Oral mucosa was slightly dry. The patient has been mouth breathing. Ears: On viewing the patient's bilateral ears with the otoscope, she does not have any signs of infection. Bilateral canals do have some cerumen noted. It does not appear to be erythematous. The bilateral tympanic membranes did have pearly sanchez color and did have positive light reflex and does not appear to be erythematous as well. NECK: Supple. Trachea midline. CARDIOVASCULAR: The patient had S1 and S2 present. No murmurs, gallops, or rubs appreciated with a regular rate and rhythm. PULMONARY: The patient has symmetrical chest expansion bilaterally. Lung sounds did sound clear in bilateral full chanel. ABDOMEN: Soft. Does appear to be slightly distended. The patient did report some generalized tenderness upon palpation. Bowel sounds are present though were slightly hypoactive. She does have a Mims catheter in place. She does have adriel colored urine noted to Mims drainage bag. EXTREMITIES: The patient does have pitting edema approximately 1+ noted bilateral arms. She does have 2 to 3+ pitting edema noted in bilateral lower extremities from approximately the feet up to her thighs. She does have a splint noted to her left ankle though the patient does have quite a bit of swelling to the lower part of her legs bilaterally. The splint only does come to midcalf. This may need to be resplinted. INTEGUMENTARY: The patient's skin is jaundiced. It is dry and intact. NEUROLOGICAL: Patient is drowsy. She is only oriented to person. She only is able to answer simple questions, and follow very simple commands though. She is able to move extremities. She does not move all extremities though does appear to have moderate generalized weakness. Unfortunately, some of her neurological exam is limited. ASSESSMENT: 1. Encephalopathy: This could be multifactorial. The patient does have transaminitis. It could be related to hepatic encephalopathy as well as she has been receiving some medications that may be toxic in nature. She has been receiving some medications that could be [*] to this such as she was prescribed Xanax and Ultram at the assisted. We will hold these medications. The patient will be NPO at this time until her mentation improves. She will be on frequent neuro checks. She will be provided aspiration precautions as well. As previously mentioned, the patient's daughter did initially refuse a CT of the head in the ER. The patient at the time of my examination, her mentation is beginning to improve. If her mentation begins to decline, we did explain to her daughter that this study may need to be performed to rule out any further acute intracranial abnormalities. We will continue to follow. 2. Transaminitis. This is uncertain etiology as well. The patient did just undergo an ERCP with biliary stent placement though on the CT the common bile duct stent appears to be in good place. We are going to perform some studies for further evaluation of this. We have ordered hepatitis profile. Her ammonia level was within normal limits. We have also ordered an abdominal ultrasound and we will continue to follow. Though it could be medication related as well, we have held all her medicines though at this time she is drowsy and is NPO until her mentation improves. 3. Thrombocytopenia. The patient does not have any signs of active bleeding at this time. We will continue to monitor this closely. 4. Status post ERCP with stent placement and laparoscopic cholecystectomy by Dr. Thao. The patient's daughter states that she had an appointment with him today for follow up since her surgery. We have placed a consult for him for this as well as she does have CT findings of adenopathy that could be suggestive of metastatic disease. We will await his evaluation and further recommendations for management. 5. History of breast cancer. Given the patient's new findings of possible metastatic disease as well as her history of breast cancer, we are going to perform a CT chest with contrast though the patient has just received contrast with her abdomen and pelvis. We will have to wait sometime approximately 24 hours, but we are able to scan her. 6. Left ankle pain secondary to a fall with possible left fibular fracture that was diagnosed in the ER on 07/14. The ER physician there did place a splint and she was to follow up for orthopedic surgery. Though the over read by the radiologist of the x-ray did not show acute fracture, it showed some soft tissue edema but no definite osseous abnormality. We will await orthopedic surgery evaluation and further recommendations for management. Though her OCL splint may need to be redone due to it only coming up to the mid calf, the patient does have quite a bit of edema noted in her extremities. 7. Possible pneumonia. There was mention of the patient's CT abdomen and pelvis that there was possible atelectasis versus pneumonia in the lower lobes. We will go ahead and place the patient with antibiotic coverage of Levaquin. We have obtained blood cultures. We will continue to follow . 8. Deep vein thrombosis prophylaxis. We were provided with SCD's and we were close to the right lower extremity only giving her a possible left fibular fracture. 9. The patient has been placed on CIC with telemetry. She will have vital signs and neurological checks q. 4h. Strict intake and output and incentive spirometry. We will repeat a CBC and CMP in the morning. I did forget to add that we did place a consult with Dr. Lau given her history of breast cancer and possible findings concerning for metastatic disease. Other orders and recommendations pending hospital course, diagnostic studies and physician evaluation. Dictated by KRISTA Connolly for Wolfgang Hernadez MD cc: MD Michael Patricia MD
[2018-07-16] MEDS ORDERED: D5 NS 1,000 ML IV SCH (19:00)
[2018-07-16] MEDS: D50W SYRINGE IV PRN ×2 (19:16→21:01)
--- NOTE | 2018-07-16 22:24 | HEMO/ONC CONSULTATION ---
DATE: 07/16/2018 CHIEF COMPLAINT: We are being consulted for the patient's history of breast cancer that may now possibly be metastatic disease. HISTORY OF PRESENT ILLNESS: Patient is known to us in the clinic regarding a history of anemia. She began seeing us in approximately April of this year, regarding a low hemoglobin and hematocrit and iron deficiency anemia. The patient was given one dose of IV iron in April and was subsequently hospitalized and placed in rehab in [place]. The patient then returned in June with critically low hemoglobin and hematocrit again, in which she was transfused in the hospital, and then sent back to rehab in [place]. The patient presented to the ER last night with complaint of jaundice, general decline, status post ankle fracture. The patient is not communicating appropriately and was subsequently admitted for jaundice and altered mental status. Abdominal/pelvis CT shows worsening splenomegaly, pleural effusion, mild anasarca, cardiophrenic internal mammary and retroperitoneal and inguinal adenopathy. PAST MEDICAL HISTORY: Hypertension, anemia, hiatal hernia, hypercholesterolemia, history of upper GI bleeding and GERD. PAST SURGICAL HISTORY: Lumpectomy x2, hysterectomy, cataract surgery and appendectomy. ALLERGIES: Penicillin and adhesive tape. MEDICATIONS: Alprazolam, temazepam, estradiol, omeprazole, pravastatin, Tylenol Arthritis, vitamin B6, vitamin B12, folic acid, famotidine, magnesium, Culturelle and calcium. SOCIAL HISTORY: She is a nonsmoker that has wine on occasion. FAMILY MEDICAL HISTORY: Her mother had hypertension. Her father had anemia and a hiatal hernia. REVIEW OF SYSTEMS: See HPI. PHYSICAL EXAM: Vital Signs: 98.9, heart rate 97, respiratory rate 26, blood pressure 101/48, respiratory rate 97% on 2 L via nasal cannula. 0/10 pain. General: On physical exam, patient lying in bed, in no apparent distress, slow to respond. HEENT: PERRLA. Mucous membranes moist. Respiratory: Clear to auscultation. No accessory muscle use. Cardiovascular: S1, S2 noted. Regular rate and rhythm. Tachycardic. Abdomen: Soft, nondistended, nontender. Lymphatic: No lymphadenopathy noted. Musculoskeletal: Left ankle is immobilized. Right lower extremity +2 pitting edema. Pain noted with palpation. Skin: Jaundiced. LABORATORY DATA: WBC 7.15, hemoglobin 8.6, hematocrit 26.7, platelet count 52. Creatinine 0.8, calcium 7.8, albumin 1.9. Chest x-ray showed atelectasis and/or pneumonia in the left lower lobe. Abdominal ultrasound shows mild splenomegaly 13.[address] abdomen and pelvis without contrast shows cardiophrenic internal mammary, retroperitoneal and inguinal adenopathy. ASSESSMENT AND PLAN: 1. Anemia. 2. Diffuse lymphadenopathy. 3. Ankle fracture. 4. Altered mental status. 5. LFT abnormalities and splenomegaly. Recent cholecystectomy. 5. History of breast cancer. Dictated by KRISTA Rodriguez for Bijan Aburto MD Patient seen and examined. Await mental status recovery. Concerned for metastatic lymphadenopathy. Will discuss with Dr. Simental. Bijan aburto MD. cc: MD Michael Lewis MD [facility]
--- NOTE | 2018-07-17 03:37 | ORTHOPAEDICS CONSULTATION ---
DATE: 07/16/2018 REASON FOR CONSULTATION: Left ankle pain secondary to fall. HISTORY OF PRESENT ILLNESS: Ms Martin is an 87-year-old female who was discharged recently from [facility] on 06/26/2018. It sounds like she went to a rehab facility, but was discharged on 07/14. She presented to [facility] Emergency Room after a fall. She was, apparently, being transferred from wheelchair to bed and fell with staff with her. She was complaining of a lot of left ankle pain. She does not ambulate much. In the ER, they suspected a possible fibular fracture. She was placed in a splint and referred to follow up with Dr. Velez. She was discharged from the ER. However, later that evening she returned to the ER with drowsiness and decreased mental status. She was still complaining of left ankle pain. She was admitted for looks like multiple medical issues. Orthopedics has been consulted for management of the left ankle. PAST MEDICAL HISTORY: 1. Vitamin B12 deficiency. 2. Hypertension. 3. Hyperlipidemia. 4. Chronic blood-loss anemia. 5. History of breast cancer. 6. Hiatal hernia. 7. Reflux disease. 8. Osteopenia. PAST SURGICAL HISTORY: 1. Tonsillectomy. 2. Appendectomy. 3. Total abdominal hysterectomy. 4. Bilateral cataract replacement. 5. Basal cell carcinoma. 6. Recent laparoscopic cholecystectomy. SOCIAL HISTORY: The patient is resident at [facility]. There is no alcohol or illicit drug use. She is a former smoker. FAMILY HISTORY: Noncontributory. ALLERGIES: Penicillin and adhesive tape. MEDICATIONS: Refer to chart. IMAGING: A left 3 view non-weight bearing ankle film did not show any obvious fracture or diastasis. PHYSICAL EXAMINATION: Vital Signs: Heart rate 90, respirations 18, blood pressure 108/59, she is 92% on 2 L nasal cannula. General: Ms. Martin is an 87-year-old female who is drowsy but arousable. She was able to follow simple commands and was oriented to her name only. HEENT: Head is atraumatic, normocephalic. Pupils are equal, round, react to light. Cardiovascular: Regular rate and rhythm. Pulmonary: Breathing is even and unlabored. Abdomen: Appears nondistended. Extremities: She does have some diffuse ecchymosis to the ankle. She does have a little bit of edema, mostly on the lateral side of the ankle. She had tenderness to palpation over the ATFL and CFL. There were no skin ulcerations or abrasions. She does have good sensation to the toes. ASSESSMENT: Left ankle sprain. PLAN: We did take her out of the splint. After talking with the family and with the patient, I think she will be more comfortable without a splint or any form of mobilization. It does not sound like she ambulates much, so I do not think a boot would be beneficial for her. It does sound like the plan is for her to go home on hospice, so we really just want her as comfortable as possible. At this point, we will have her follow up in the office if she is able. Otherwise, I do think a lot of this will resolve on its own. She can weight bear as tolerated. If there are any questions or concerns she is welcome to call the office. Dictated by KRISTA Franco for Andreas Joe MD cc: KRISTA Franco MD Timothy P. Weirich, MD
[2018-07-17] MEDS: PRILOSEC PO SCH (08:11)
[2018-07-17] MEDS: CELEBREX PO SCH (08:11)
[2018-07-17] MEDS: LEVAQUIN 750 MG/D5W 750 MG/150 ML IVPB IV SCH (08:11)
[2018-07-17] MEDS ORDERED: ESTRACE PO SCH (09:00)
[2018-07-17] MEDS: LACTULOSE PO SCH ×2 (11:47→20:36)
--- NOTE | 2018-07-17 12:08 | PROGRESS NOTE ---
DATE: 07/17/2018 SUBJECTIVE: The patient is awake and alert and seems to recognize me this morning. She is conversive, but her voice is weak, and she is difficult to understand. The patient's daughters were present and attempted to translate. The patient is convinced that she is actively dying, and she very well may be doing so. OBJECTIVE: Vital Signs: 97.7, 103, 25, 118/43, 95% saturated on 2 L nasal cannula. Lungs: The patient's lungs are clear. Cardiovascular: Regular at just around 100 at the time of my examination. Abdomen: Slightly protuberant. I cannot detect a succussion splash. Extremities: The patient's lower extremities show 1+ edema to the level of the waist. She does not appear to have edema of the upper extremities. LABORATORY: No lab was drawn today. ASSESSMENT AND PLAN: 1. In review of the patient's laboratory studies just prior to her gallbladder surgery, her bilirubin was 0.9. After the cholecystectomy and then ERCP with stent placement, her bilirubin seems to have gradually increased to the point of where it is now at about 4.9. She is mildly jaundiced. I am suspicious that there is at least inflammation if not other obstruction at the site of the stent, and would like to have it removed. I have consulted Dr. Wong and have spoken with him this morning along those lines. Also, I mentioned this to the daughters that I think this is a necessary first step to remove the stent to see if we can alleviate liver congestion and hyperbilirubinemia. 2. The possibility of metastatic disease exists based on her CT scan could be any number of places of origin. Due to the patient's age and infirmity, I am not sure I want to launch into a biopsy situation as I do not think she is a candidate for much treatment in that regard. We will continue to monitor her once we get the stent out of her common bile duct. 3. The patient has been hypotensive and even after some fluid resuscitation she is mildly hypotensive. I do not think we can actively diurese her at the present time in that regard. We will continue to monitor fluid status levels, and make adjustments as necessary and as tolerated by her blood pressure and overall condition. 4. Chronic anemia. We are aware. We will continue to follow this. Dr. Lau is also on board and has been following her on an outpatient basis in this regard. 5. The patient is old and frail, and is essentially nonambulatory at the present time, and has not done well for quite some time. She started an active decline more towards the beginning of this year and continued the downward trend, particularly since the of her , which I believe occurred at the very end of 2018. I do not see that she has much of any rehab potential and likely discharge plans will include either usp with hospice or home with hospice. If she has to jump to the hoop of being technically assigned as a rehab patient temporarily, I am okay with that as long as we are able to keep her comfortable and in some place where she is reasonably happy. 6. The patient was hypoglycemic yesterday which I think has to do with her liver function abnormalities, and essentially acute liver injury. She is not on any hypoglycemic agents. We will continue to monitor this. We did a swallowing test today, and they are going to give her soft mechanical diet, and see how she does with that. She was encouraged to eat regularly. cc: Michael Simental MD
[2018-07-17 12:25] LABS: HEPATITIS PROFILE ACUTE SEE COMMENTS
--- NOTE | 2018-07-17 15:21 | GENERAL SURGERY CONSULTATION ---
DATE: 07/17/2018 HISTORY OF PRESENT ILLNESS: Ms. Martin is known to me from a cholecystectomy 3 weeks ago for acute cholecystitis and cholelithiasis. She did not drain her bile duct well on cholangiogram and therefore an ERCP was done, placing a stent by Dr. Brand. She now is admitted after being at [facility] with encephalopathy. She has known retroperitoneal adenopathy as noted on CT scan. OTHER MEDICAL HISTORY: Includes vitamin B12 deficiency, hypertension, hyperlipidemia, blood-loss anemia, history of breast cancer, hiatal hernia and osteopenia. PREVIOUS SURGERY: Includes a tonsillectomy, appendectomy, total abdominal hysterectomy, cataract replacement, removal of basal cell carcinomas of the arm and the recent cholecystectomy and stent placement. SOCIAL HISTORY: This lady is . She has attentive daughter x2. Denies alcohol or drug use. FAMILY HISTORY: As noted above. MEDICATIONS: Listed. ALLERGIES: Penicillin. PHYSICAL EXAMINATION: Vital signs: She is afebrile. Heart rate 103, blood pressure 118/43, bilateral breath sounds. Heart: Regular rate and rhythm. Abdomen: Soft. Her wounds are healing well. I cannot palpate her groin adenopathy. Extremities: She has swollen legs. Neurologic: Her mental status is abnormal and she is speaking in a garbled fashion and it is difficult to follow her pattern of thought. ASSESSMENT: About 3 weeks post laparoscopic cholecystectomy with a biliary stent in place. She has known adenopathy. PLAN: In view of her mental status, age and situation, I do not think any intervention regarding her nodes is indicated. I think we should simply provide comfort care. I discussed this with her daughter and I do not recommend any operative intervention. She agrees. cc: MD Michael Ramsey MD
[2018-07-17] MEDS: MORPHINE IV PRN ×3 (15:51→20:36)
--- NOTE | 2018-07-17 16:17 | HEMO/ONC PROGRESS NOTE ---
DATE: 07/17/2018 SUBJECTIVE: Patient appears alert and awake, sitting upright in her bed. She does not appear to be in any distress. OBJECTIVE: Vital Signs: Temperature 97.7 degrees, pulse rate 103, respiratory rate 25, blood pressure 118/43, O2 saturation 95% on 2 L via nasal cannula. 0/10 pain. General: Patient sitting up, alert in bed. She is slow to respond, although answering appropriately. Respiratory: Lung sounds clear to auscultation. No accessory muscle use. Cardiovascular: S1, S2 is noted. Regular rate and rhythm. Abdomen: Soft, nondistended, nontender. Musculoskeletal: Immobilization have removed from left ankle. Bilateral lower extremities have 2+ pitting edema. The patient is more comfortable with mobilization removed. Skin: Jaundiced. LABORATORY: No labs ordered for today. ASSESSMENT/PLANS: 1. Encephalopathy. This could be multifactorial. We will follow recommendations per the primary medical team. Dr. Weaver from GI believes possible cirrhosis is playing a role. 2. Thrombocytopenia/anemia. The patient does not have any clinical signs of bleeding at this time. We encouraged a gastroenterology consultation. We will continue to monitor. 3. History of triple negative breast cancer: CT scan shows diffuse lymphadenopathy in the cardiophrenic, internal mammary, retroperitoneal, and inguinal adenopathy. It is most like metastatic breast cancer. There is a palpable, hard node to the right axilla that may be possibly biopsied. We will discuss this with Dr. Simental to decide. We do not think patient is a candidate for chemotherapy at this time. 4. . Deep venous thrombosis prophylaxis. We will agree with treatment per the medical team. Dictated by KRISTA Rodriguez for Bijan Lau MD Patient seen and examined. As above. Patient continues to have confusion. Discussed with Dr. Wong. He believes her encephalopathy may be related to cirrhosis. Patients thrombocytopenia may be related to splenic consumption. It is also possible that this is from ITP or bone marrow involvement from cancer. He agrees that we dont need to be pursuing a bone marrow biopsy at this time. Support with blood products for now as needed. She has a history of triple negative breast cancer. CT scans revealed metastatic lymphadenopathy. She has a palpable right axillary lymph node, which if needed, can be biopsied. Based on her current condition, she is not a candidate for chemotherapy. I discussed this with the daughter and she is agreeable. Bijan Lau M.D. cc: MD Michael Lewis MD [facility]
--- NOTE | 2018-07-17 16:40 | GASTROENTEROLOGY CONSULTATION ---
DATE: 07/17/2018 REASON FOR CONSULTATION: Jaundice. HISTORY OF PRESENT ILLNESS: Ms. Jane Martin is an 87-year-old woman with past medical history of hypertension, hyperlipidemia, chronic anemia with iron deficiency, history of breast cancer status post lumpectomy without need for chemo or radiation, who was recently hospitalized for presumably acute cholecystitis status post laparoscopic cholecystectomy and ERCP secondary for concerns of choledocholithiasis in the setting of abnormal LFTs, who re-presented on 07/15 with altered mental status and right ankle fracture from a fall. History is obtained from daughter at bedside and medical record given the patient's altered mental status. Per her report, the patient has been having a continual decline over the last several months. She had been hospitalized back in April for fever and from unclear etiology, and was treated empirically with antibiotics, discharged and re-presented again in May with right upper quadrant pain, diagnosed with acute cholecystitis. She underwent laparoscopic cholecystectomy on 06/25/2018. Intraoperative cholangiogram showed choledocholithiasis. ERCP on the following day was not remarkable for stones. There was some minor sludge. Sphincterotomy was performed, basket sweep, and a common bile duct stent was placed 10-[place] 5 cm. The daughter reports the patient has been having slurred speech since her surgery and progressive jaundice that even preceded her surgery. No nausea or vomiting. No rectal bleeding or abdominal distention. She has had some lower extremity edema. No reported fevers. She was seen by Dr. Lau as an outpatient for iron deficiency. The patient had EGD in the past that was negative for peptic ulcer disease, only notable for ulcers. In the ER, she was given a liter of fluid, and head CT scan on 07/14 showed mild cerebral atrophy and microvascular disease chronically, but no acute process. REVIEW OF SYSTEMS: Limited given patient's altered mental status. PAST MEDICAL HISTORY: 1. Hypertension. 2. Hyperlipidemia. 3. Chronic iron deficiency anemia. 4. History of breast cancer. 5. Hiatal hernia. 6. GERD. 7. Osteopenia. 8. Vitamin B12 deficiency. PAST SURGICAL HISTORY: 1. Tonsillectomy. 2. Appendectomy. 3. Hysterectomy. 4. Bilateral cataract surgery. 5. History of basal cell carcinoma of the right breast status post lumpectomy. 6. Laparoscopic cholecystectomy on 06/25/2018. MEDICATIONS: She is on 1. Tylenol Arthritis. 2. Xanax. 3. Celebrex. 4. Estradiol. 5. Lasix. 6. Probiotic. 7. Cozaar. 8. Milk of magnesia. 9. Lopressor. 10. Prilosec. 11. MiraLAX. 12. Potassium. 13. Pravastatin. 14. ProMod. 15. Ultram. FAMILY HISTORY: No known family history of liver disease. ALLERGIES: 1. Penicillin. 2. Adhesive tape. SOCIAL HISTORY: The patient is nondrinker. No alcohol. Former smoker. PHYSICAL EXAMINATION: VITAL SIGNS: Temperature 97.7 degrees, heart rate is 103, respiratory rate 25, blood pressure 118/43, O2 saturation 95% on room air. General: Patient is awake, alert, confused, mildly diaphoretic. HEENT: Scleral icterus is noted. Extraocular motor intact. Moist mucous membranes. Neck: Supple. No JVD. Lungs: Clear to auscultation bilaterally. No wheezes. Heart: Regular, tachycardic. No murmurs. Abdomen: Obese, soft, nontender, nondistended. Normoactive bowel sounds. No rebound or guarding. Extremities: 1+ pitting edema in the lower extremities bilaterally. Neuro: She is awake, alert, oriented to self and city, not to date and time. She is moving her extremities symmetrically. She does have notable asterixis in her upper extremities, which she finds difficult to raise. She has notable weakness generally. LABORATORY DATA: White count is 7.1, hemoglobin is 8.6, at baseline, platelets are 52,000, unchanged. INR is 1.17. ABG is pH of 7.44, pCO2 of 43, PO2 of 68. Chemistries show a BUN of 33, otherwise normal BMP. LFTs have a bilirubin of 4.98, which has been climbing since late May. AST of 36, ALT of 32, alkaline phosphatase of 331, albumin is 1.9, total protein 5.6. UA shows bilirubin, no signs of UTI. Ammonia level notable was 50. Lactate was 1.4. IMAGING: CT of the abdomen and pelvis on 07/15 shows worsening splenomegaly, common bile duct in place without any biliary dilation, notable pneumobilia status post prior ERCP, worsening pleural effusions, atelectasis versus pneumonia in the lower lobes and mild anasarca, cardiophrenic internal mamillary, retroperitoneal and inguinal lymphadenopathy, minimal ascites. Abdominal ultrasound shows mild splenomegaly and no obvious liver disease. Chest x-ray shows atelectasis and/or pneumonia in the left lower lobe. ASSESSMENT AND PLAN: 1. Ms. Jane Martin is an 87-year-old woman with multiple medical problems who was admitted with a fall sustaining a left ankle sprain and altered mental status. Labs notable for chronic anemia and thrombocytopenia without overt gastrointestinal bleeding and cholestatic AST elevation with in the setting of altered mental status. The patient has altered mental status without obvious cause. I am concerned that she probably has some underlying liver disease, particularly cirrhosis, given her splenomegaly, jaundice, confusion, hypoalbuminemia, and progressive decline. Her LFTs did not seem to improve after her ERCP and stent placement. There was not any significant sludge or stones noted when the procedure was done. The CT currently shows that the common bile duct is in place without any intrahepatic biliary dilation. For her abnormal LFTs, will trend her LFTs daily as well as INR. We will give her lactulose empirically twice a day and titrate for 2 to 3 bowel movements a day. Consider neurologic evaluation given her altered mental status if there is no improvement with lactulose. 2. Common bile duct stent. It looks like it is in place. We will monitor for improvement of her LFTs. Recommend acute hepatitis panel be checked if not done previously. 3. Anemia. She has no overt bleeding at this time. We will continue to trend. 4. Thrombocytopenia noted. Hold subcutaneous heparin and Lovenox. 5. Intra-abdominal lymphadenopathy and thoracic lymphadenopathy. Hematology is following. There is some concern of possible lymphoma. Defer workup and management to Dr. Lau. 6. Question pneumonia on chest x-ray and CT. The patient is currently on empiric Levaquin. 7. Gastroesophageal reflux disease. Continue proton pump inhibitor. Thank you for this consult. We will follow with you. Please call with any questions or concerns. cc: Michael Simental MD
--- NOTE | 2018-07-18 01:14 | Extremity Venous Study ---
PROCEDURE NAME: Venous U/S Bilateral Legs - 07/17/2018 REQUEST PHYSICIAN: Dr. Simental. READING PHYSICIAN: Dr. De La Cruz. REPAIR COIL WINDER: Tanika. INDICATION: Leg swelling. FINDINGS: The deep and superficial veins of both lower extremities were imaged throughout their course. They are compressible, patent, and without thrombus. A small cystic area is noted in the left popliteal fossa. It is not measured. INTERPRETATION: No DVT or SVT of either lower extremity. There is a small left popliteal cyst. cc: MD Michael Mauricio MD
[2018-07-18 06:06] LABS: INR 1.37; PROTIME 17.9 Seconds (11.0-16.0); PTT 41.9 Seconds (22.3-41.8)
[2018-07-18 07:04] LABS: ALB/GLOB RATIO 0.3; ALBUMIN 1.3 g/dL (3.5-5.0); CREATININE 0.9 mg/dL (0.5-0.9); MAGNESIUM 1.8 mg/dL (1.5-2.7); POTASSIUM 4.7 mmol/L (3.5-5.1); TOTAL PROTEIN 5.7 g/dL (6.3-8.3)
[2018-07-18 07:05] LABS: BASO# 0.04 X1000 (0.0-0.2); BASO% 0.5 % (0.0-0.8); HEMATOCRIT 25.3 % (37.0-47.0); HEMOGLOBIN 7.7 g/dL (12.0-16.0); IMM GRAN# 0.46 X1000 (0.0-0.04); IMM GRAN% 5.7 % (0.0-0.5); LYMPH# 0.55 X1000 (1.2-3.4); LYMPH% 6.8 % (20.5-51.1); MCH 28.9 PG (27-31); MCHC 30.4 g/dL (33-37); MCV 95.1 FL (81-99); MONO# 0.69 X1000 (0.11-0.59); MONO% 8.6 % (1.7-9.3); NEUT# 6.32 X1000 (1.4-6.5); NEUT% 78.4 % (42.2-75.2); PLT 57 X1000 (130-400); RBC 2.59 XMIL (4.2-5.4); RDW 22.4 % (11.5-14.5); WBC 8.06 X1000 (4.8-10.8)
[2018-07-18] MEDS: CELEBREX PO SCH (08:25)
[2018-07-18] MEDS: LACTULOSE PO SCH ×2 (08:26→21:24)
[2018-07-18] MEDS: PRILOSEC PO SCH (08:26)
--- NOTE | 2018-07-18 13:54 | PROGRESS NOTE ---
DATE: 07/18/2018 The patient was sleeping in the room. There is no family present. Yesterday's consultations, notes, laboratories, and test results were reviewed. VITAL SIGNS: 97.4, 99, 16, 116/48, 97% saturated on 4 L nasal cannula. PHYSICAL EXAMINATION: The patient's lungs are clear in the anterior and superior chanel. Slightly diminished breath sounds in the lower lobes posteriorly.Abdomen: Protuberant. Cardiovascular: Regular at approximately 100 beats per minute at the time of my examination. Extremities: Show 1 to 2+ pitting edema in the dependent areas. This extends all way up to the waist. LABORATORY: White count is 8.06, hemoglobin has dropped to 7.7, hematocrit 25.3, platelet count is 57,000. INR is 1.37, PTT is 41.9, total bilirubin is 5.0, alkaline phosphatase 304. Hepatitis panel is nonreactive. ASSESSMENT AND PLAN: 1. The patient's elevated bilirubin, low platelet count, splenomegaly, and other findings are consistent with liver injury or failure. Dr. Wong believes this is due to cirrhosis. I would still entertain removal of stent and a second basket sweep to make sure that there is no other evidence of obstruction. We are continuing antibiotics with potentiality of cholangitis as well as other entities. 2. Dr. Lau is convinced that the patient's lymphadenopathy is sales representative raw fibers of metastatic spread of her triple negative breast cancer. Since there was no family present, I could not discuss the possibility of biopsy of lymph node that is present in her right axilla. This might be entertained if the patient's family really wants to know. Frankly, I do not think she is in any kind of shape to tolerate any chemotherapy which would really be her only option. Dr. Lau also think she is not a candidate for chemotherapy. We may want to just leave well enough alone. 3. The patient still remains relatively hypotensive. I am reluctant to institute spironolactone for her as a result. She would likely benefit from slight diuresis if her blood pressure would support. 4. The patient's chronic anemia seems to be getting worse. I do not think this is dilutional effect. We may need to transfuse and will continue to follow this. 5. I had a serious discussion yesterday with the patient's family about what we need to do at the time of discharge. I believe that it depends on if she remains stable, she will need to either go to a [facility] with hospice or home with hospice. She is not really a candidate for rehab, although they may have to jump through that hoop in order to satisfy criteria. 6. The patient has not had further hypoglycemia. 7. Do not resuscitate level 1. 8. The patient does not have an ankle fracture. cc: Michael Simental MD
[2018-07-18] MEDS: MORPHINE IV PRN ×2 (18:23→23:57)
[2018-07-19 06:07] LABS: BASO# 0.02 X1000 (0.0-0.2); BASO% 0.3 % (0.0-0.8); HEMATOCRIT 24.8 % (37.0-47.0); HEMOGLOBIN 7.8 g/dL (12.0-16.0); IMM GRAN# 0.41 X1000 (0.0-0.04); IMM GRAN% 5.8 % (0.0-0.5); LYMPH# 0.47 X1000 (1.2-3.4); LYMPH% 6.7 % (20.5-51.1); MCH 29.9 PG (27-31); MCHC 31.5 g/dL (33-37); MONO# 0.66 X1000 (0.11-0.59); MONO% 9.4 % (1.7-9.3); MPV 12.7 FL (7.4-10.4); NEUT# 5.48 X1000 (1.4-6.5); NEUT% 77.8 % (42.2-75.2); PLT 57 X1000 (130-400); RBC 2.61 XMIL (4.2-5.4); RDW 22.5 % (11.5-14.5); WBC 7.04 X1000 (4.8-10.8)
[2018-07-19 07:01] LABS: ALB/GLOB RATIO 0.4; ALBUMIN 1.5 g/dL (3.5-5.0); CALCIUM 8.1 mg/dL (8.8-10.2); CREATININE 1.1 mg/dL (0.5-0.9); POTASSIUM 4.8 mmol/L (3.5-5.1); TOTAL BILIRUBIN 5.09 mg/dL (0.20-1.00); TOTAL PROTEIN 5.7 g/dL (6.3-8.3)
[2018-07-19 07:05] LABS: ANISOCYTOSIS 1+; BANDS 8 % (0-1); HYPOCHROM OCCASIONAL; LYMPHS 4 % (21-51); MONO 6 % (1-9); SEGS 82 % (42-75)
[2018-07-19] MEDS: LACTULOSE PO SCH ×2 (08:24→20:00)
[2018-07-19] MEDS: LEVAQUIN 750 MG/D5W 750 MG/150 ML IVPB IV SCH (08:24)
[2018-07-19] MEDS: PRILOSEC PO SCH (08:24)
[2018-07-19] MEDS: CELEBREX PO SCH (08:24)
--- NOTE | 2018-07-19 12:04 | PROGRESS NOTE ---
DATE: 07/19/2018 SUBJECTIVE: Ms. Martin has a history of cirrhosis. The family reports that she is very confused and disoriented. Her speech is rambling. Her ideas are disjointed and unrelated. Total bilirubin remains persistently elevated at 5.1. She is markedly jaundiced. Blood sugars are consistently less than 150. She denies any nausea or vomiting. OBJECTIVE: She is afebrile. Vital signs are stable. CV: Regular rate and rhythm. Lungs: Diminished breath sounds in the bases bilaterally. Abdomen: Distended, with good bowel sounds. No rebound or guarding. Extremities: There is 1+ pitting edema in the lower extremities bilaterally. Labs: Various laboratory studies were obtained. 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 According to the family, she sees more confused and disoriented. Speech is rambling. Ideas are disjointed. I am going to check an ammonia level today. We will adjust the dosage of lactulose as needed. I could not find a number of loose stools that she has had on the lactulose. I will recheck a CBC, CMP, and ammonia level in the morning. cc: MD Michael Paige MD
[2018-07-19] MEDS: MORPHINE IV PRN ×2 (16:49→19:56)
--- NOTE | 2018-07-19 17:36 | GASTROENTEROLOGY PROGRESS NOTE ---
DATE: 07/19/2018 SUBJECTIVE: The patient is more confused. Bilirubin is about 5.1. There is no nausea and vomiting. She did have a stent placed 3 weeks ago. She had calculous cholecystitis and no emptying in the common bile duct on operative cholangiogram. I did ERCP. There is some debris which is tiny calculus material but no definite stone. I placed a stent. OBJECTIVE: Vital signs: Stable. Afebrile. General: She is confused. Lungs: Decreased breath sounds. Abdomen: Distended. Bowel sounds. No rebound or guarding. Extremities: Have 1+ pedal edema. LABS: Reviewed. IMPRESSION: 1. Possible hepatic encephalopathy with underlying cirrhosis. 2. Common bile duct stent. I doubt if it has blocked. There is no sign of cholangitis but depending on how she does, I might make an attempt to remove this on this admission. 3. Anemia. 4. 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 5. Metastatic breast cancer. 6. Gastroesophageal reflux disease. PLAN: Will follow. If she improves we will remove the stent before she goes back to the [facility]. cc: MD Michael Buenrostro MD
[2018-07-20] MEDS: LACTULOSE PO SCH ×2 (08:07→20:02)
[2018-07-20] MEDS: CELEBREX PO SCH (08:07)
[2018-07-20] MEDS: PRILOSEC PO SCH (08:07)
--- NOTE | 2018-07-20 09:39 | PROGRESS NOTE ---
DATE: 07/20/2018 SUBJECTIVE: Ms. Martin was admitted with hepatic encephalopathy secondary to underlying cirrhosis. We increased the lactulose to 30 mL b.i.d. Ammonia level has dropped to 46 this morning. She still has baseline confusion and disorientation, but she seems more alert this morning. She was oriented to name and place. She does have a history of type 2 noninsulin-dependent diabetes mellitus. OBJECTIVE: Vitals: Temperature 97.3 degrees, pulse 89, respirations 17, blood pressure 123/50. CARDIOVASCULAR: Regular rate and rhythm. Lungs: Clear. Abdomen: Soft, nontender, with active bowel sounds. LABORATORY: Her blood sugars are ranging from 99 to 131. ASSESSMENT AND PLAN: 1. 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 She still has baseline confusion and disorientation, but she seemed more alert this morning. She was oriented to name and place. We will continue lactulose 30 mils b.i.d. and follow an ammonia level. 2. Type 2 [id number] diabetes mellitus. Blood sugars are stable. We will continue pattern sugars and a Humulin R sliding scale. cc: MD Michael Paige MD
--- NOTE | 2018-07-20 15:48 | GENERAL SURGERY PROGRESS NOTE ---
DATE: 07/20/2018 SUBJECTIVE: No events documented. She is alert this morning and conversant, but still confused. No fevers. No tachycardia. OBJECTIVE: Abdomen is soft. DIAGNOSTIC STUDIES: I reviewed her laboratories. Yesterday, her white count was normal. Her bilirubin is 5.09. ASSESSMENT AND PLAN: 1. An 87-year-old female status post laparoscopic cholecystectomy. She had a biliary stent placed. No cholangitis on exam. 2. She does have metastatic breast cancer. 3. Hepatic encephalopathy related to her cirrhosis. We will continue to follow along with no plans for surgical intervention. cc: MD Michael Box MD
[2018-07-20] MEDS: MORPHINE IV PRN (17:30)
[2018-07-21] MEDS: LEVAQUIN 750 MG/D5W 750 MG/150 ML IVPB IV SCH (08:05)
[2018-07-21] MEDS: CELEBREX PO SCH (08:05)
[2018-07-21] MEDS: PRILOSEC PO SCH (08:05)
[2018-07-21] MEDS: LACTULOSE PO SCH ×2 (08:46→20:26)
--- NOTE | 2018-07-21 14:20 | HEMO/ONC PROGRESS NOTE ---
DATE: 07/21/2018 SUBJECTIVE: The patient is awake and alert this morning, sitting up in bed. She still continues to have some confusion and disorientation. She is oriented to name and place. OBJECTIVE: Vital Signs: Temperature 98.1 degrees, pulse rate 92, respiratory rate 18, blood pressure 91/39, O2 saturation 100 on nasal cannula at 3 L. Reports 0/10 pain. Physical Examination: General: Elderly lady, sitting comfortably in bed, in no acute distress. Respiratory: Lung sounds clear. Heart: S1, S2 noted. Regular rate and rhythm. Abdomen: Soft, nontender, nondistended. Neurological: Alert and oriented to person and place. Remains confused. Laboratory: No labs drawn today. Last labs reviewed. ASSESSMENT AND PLAN: 1. Encephalopathy. This is most likely multifactorial. Dr. Lau discussed with Dr. Wong. He believes her encephalopathy is related to cirrhosis. 2. Thrombocytopenia. Patients thrombocytopenia may be related to splenic consumption. It is also possible that this is a form of idiopathic thrombocytopenic purpura or bone marrow involvement from her cancer. Dr. Simental agrees that we do not need to be pursuing a bone marrow biopsy at this time. We will support with blood products for now as needed. 3. History of triple negative breast cancer. CT scans revealed metastatic lymphadenopathy. She has a palpable right axillary lymph node which, if needed, can be biopsied. Based on her current condition, she is not a candidate for chemotherapy. This had been discussed with the patient's daughter and they are agreeable. Dictated by KRISTA Rodriguez for Bijan Lau MD Patient seen and examined. As above. Dr. Simental has consulted hospice. Agree with comfort measures. I will sign off at this time and we will be available as needed. Bijan Lau M.D. [facility]
[2018-07-21 15:34] LABS: HEMOGLOBIN 7.7 g/dL (12.0-16.0)
--- NOTE | 2018-07-21 16:39 | PROGRESS NOTE ---
DATE: 07/21/2018 SUBJECTIVE: The patient is sitting up in bed with eyes open and although she starts off speaking in a coherent sentences she generally trails off into something unrelated. Both of the patient's daughters are present. We had an extensive discussion about her future. OBJECTIVE: Temperature 98.1, pulse 92, respirations 18, blood pressure 91/39. PHYSICAL EXAM: Lungs: Clear. Cardiovascular: Regular. Extremities: Show slight decrease in overall edema in the lower extremities. Her right arm appears edematous, It is noted that she has any EJ on the right side of her neck. LABORATORY: Hemoglobin 7.7, hematocrit 25.0. No chemistries were drawn today. ASSESSMENT AND PLAN: 1. I discussed at length with the daughters and they really at this point have no interest in having the patient's stent removed nor do they want the adenopathy and a right axilla biopsied. I think this is reasonable. They would like to just simply make sure that she is stable and then get her to a [facility] environment where she can have [facility] and hospice care. They would like to go to [facility] as they had some short of previous relationship with that facility. 2. The patient's hemoglobin continues to go down. I plan to transfuse her 1 unit of packed red cells. This will likely be the last infusion or transfusion that the patient has and then we will try and get her to [facility] in [place] with hospice. 3. The patient has been diagnosed with cirrhosis. She still has the moderate encephalopathy. No other treatment other than lactulose has been prescribed for that. Her blood pressure is too low for the use of diuretics or spironolactone. 4. No code blue level 1. cc: Michael Simental MD
--- NOTE | 2018-07-21 16:48 | PROVIDER PROGRESS NOTE ---
Progress Note SUBJECTIVE: No acute overnight events. She continues to have confusion. No rectal bleeding or abdominal pain. Family and patient has met with primary team and they would like to pursue hospice services. They do not want further workup of LAD, cirrhosis, or elevated liver enzymes. OBJECTIVE: Last Vital Signs Temp 98.2 F 07/21/18 16:00 Pulse 104 H 07/21/18 16:00 Resp 18 07/21/18 16:00 BP 101/46 07/21/18 16:00 Pulse Ox 98 07/21/18 16:00 Height 4 ft 11 in Weight 152 lb GEN: awake, alert, NAD HEENT: mild icterus NECK: supple, no JVD CV: tachycardic, regular, no murmurs PULM: CTAB, no wheezing ABD: soft NT/ND, BS present EXT: no c/c NEURO: moving all extremities, wordy LABS: Hgb 7.7 A/P: Ms. Jane Martin is an 87-year-old woman with multiple medical problems who was admitted with a fall sustaining a left ankle sprain and altered mental status. Labs notable for chronic anemia and thrombocytopenia without overt gastrointestinal bleeding and cholestatic LFTs concerning for cirrhosis. She was started on lactulose without much improvement. Her LFTs has remained elevated. No fever or signs of cholangitis. She was seen by hematology for evaluation of intra-abdominal LAD concerning for possible lymphoma. 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 Please call with questions.
[2018-07-21] MEDS ORDERED: NS 500 ML ONE (18:18)
[2018-07-22] MEDS: LACTULOSE PO SCH (09:18)
[2018-07-22] MEDS: CELEBREX PO SCH (09:19)
[2018-07-22] MEDS: PRILOSEC PO SCH (09:19)
[2018-07-22 11:09] VITALS: BP 121/40
[2018-07-22] MEDS: MORPHINE IV PRN ×3 (13:18→18:17)
--- NOTE | 2018-07-22 16:38 | DISCHARGE SUMMARY ---
ADMISSION DATE: 07/16/2018 DISCHARGE DATE: 07/22/2018 DISCHARGE DIAGNOSES: 1. Cirrhosis of the liver. 2. Confusion. 3. Dementia. 4. Metastatic breast cancer. CONSULTATIONS: Dr. Wong and Dr. Lau. OPERATIVE PROCEDURES: None. HOSPITAL COURSE: 1. The patient was admitted with a subacute difficulty with orientation, confusion. She was not eating or drinking well and continued to have edema in her lower extremities. She had a gallbladder surgery a couple of months ago due to some problems with liver function tests. She had a cholecystectomy and follow-up ERCP with a common bile duct stent placed after a basket sweep of the common bile duct was undertaken; there was no debris there. At that time the patient's bilirubin was only slightly elevated. When she came in this time, her bilirubin was 5.0 and she was hypoglycemic with thrombocytopenia. Dr. Wong was consulted and felt that the patient might have had underlying cirrhosis to begin with and not so much a distinct obstructive problem. Unfortunately, the patient's condition and age were such that no aggressive treatments could be undertaken, so she was put on lactulose. No recommendations for the removal of the stent were made. 2. The patient has a chronic anemia and has been followed by Dr. Lau for quite some time for this anemia, as well as for a somewhat remote history of breast cancer with mastectomy. She had pathology which was triple hormone negative. When the patient was evaluated in the emergency room during this admission a CT scan of the abdomen was undertaken because of her jaundice and she had multiple scattered lymph nodes consistent with metastatic disease and it was assumed that this represented metastasis of her breast cancer. During the hospitalization, the patient's family just wanted her to be made comfortable given her age and overall condition and as a result, we did not pursue any intra-abdominal biopsy. Dr. Lau located an enlarged lymph node in the right axilla, but they declined biopsy on this as well. I agree with this approach of not pursuing biopsy or stent removal. In discussion with the patient's family, they would like to take her to a permanent nursing facility with hospice and let nature take its course. The patient was transfused a unit of packed red cells prior to discharge. At that time she was alert and partially oriented. She was immobilized but still had lower extremity edema as a result of her cirrhosis. No attempt was made at diuresis in this regard because the patient's hypotension precluded the use of aggressive diuresis. The patient is discharged to senior living with hospice placement. cc: Michael Simental MD
--- NOTE | 2018-07-27 19:25 | ED EKG INTERP ---
This chart was entered by Joycelyn Clark Scribe, acting as scribe for Andreas Hastings MD. EKG Interpretation - EKG Time of EKG reading by physician:: 21:14 EKG Read and Signed by:: Andreas Hastings EKG Interpretation (*Must complete 3 of following elements*): Abnormal Rate: 91 Rhythm: nsr [place]: normal QRS: LVH (minimal voltage criteria for LVH may be normal variant) IN Interval: normal ST Wave: normal Attestation - Physician/ RODOLFO Attestation Patient care was provided by Advanced Practice Provider:: Yes Advanced Practice Provider documentation review:: The Mid-level provider documentation, treatment plan and medical decision making was reviewed by the physician who agrees with all treatment and medical decision making by the MLP. The physician spent face to face time with patient:: No Advanced Practice Provider documentation review:: Supervising physician onsite and consulted in the evaluation and care of this patient. The physician did not have a face to face encounter with the patient. This chart was documented by the indicated scribe, (Joycelyn Clark Scribe) and accurately reflects the services I performed and decisions made by me, Andreas Hsatings MD, as attested by the provider's signature.
== END 2018-07-22 19:15 | disposition hospice, home (50) | DRG 442 ==
LOC: SUPCPDRO → ED 17:16 → SUATTDRO 07-16 03:28 → EDIPHOLD 07-16 03:28 → SUPCPDRO 07-16 03:28 → 3S 07-16 15:32 → 3N 07-21 16:50
PROVIDERS: ADMIT Internal Medicine; ATTEND Internal Medicine
CPT/HCPCS: 36430; 51702; 70450; 71010; 71045; 72170; 73610; 74176; 76700; 80053; 80074; 80076; 81001; 82140; 82150; 82805; 82948; 83605; 83690; 83735; 85014; 85018; 85025; 85610; 85730; 86850; 86900; 86901; 86920; 87040; 93005; 93970; 94761; 94762; 94799; 96361; 96365; 96375; 96376; 99285; A9270; J1956; J2270; J7030; J7040; J7042; P9016; XXXXX